=== PATIENT | female | born 1990 ===

== ENCOUNTER 2018-11-05 22:20 | Inpatient (IN) | payer SELFPAY ==
[2018-11-05 22:20] VITALS: BMI 25.4
[2018-11-05] MEDS ORDERED: Sodium Chloride 0.9% 1,000 ML IV ONE (22:49)
--- NOTE | 2018-11-05 22:49 | C.PDOC ---
History Of Present Illness Patient presents with sharp stabbing RUQ/mid epigastric pain radiating to the back with some vomiting. Denies diarrhea. Pain initially started around 2pm, slightly subsided for 2 hours but then ate and it came back. Time Seen by Provider: 11/05/18 22:48 Chief Complaint (Nursing): Abdominal Pain History Per: Patient History/Exam Limitations: no limitations Onset/Duration Of Symptoms: Hrs Current Symptoms Are (Timing): Still Present Severity: Moderate Pain Scale Rating Of: 7 Location Of Pain/Discomfort: RUQ, Epigastric Radiation Of Pain To:: None Quality Of Discomfort: Sharp, Stabbing Associated Symptoms: Vomiting. denies: Diarrhea Exacerbating Factors: None Alleviating Factors: None Last Bowel Movement: Today Recent travel outside of the [place]: No Additional History Per: Family Abnormal Vaginal Bleeding: No Past Medical History Reviewed: Historical Data, Nursing Documentation, Vital Signs Primary Care Provider: Bipin Presley Surg - Medical History PMH: Denies: Depression, Diabetes, HTN - [facility] Procedures EXTRACTION OF POC, LOW CERVICAL, OPEN APPROACH (11/14/17) MONITORING OF POC, CARDIAC RATE, TEACHING ASSISTANT APPROACH (11/14/17) Family History: States: No Known Family Hx - Social History Hx Alcohol Use: No Hx Substance Use: No Review Of Systems Constitutional: Negative for: Fever, Chills Cardiovascular: Negative for: Chest Pain, Palpitations Respiratory: Negative for: Cough, Shortness of Breath Gastrointestinal: Positive for: Vomiting, Abdominal Pain. Negative for: Diarrhea Neurological: Negative for: Weakness, Numbness Physical Exam - Physical Exam Appears: Non-toxic Skin: Warm, Dry Head: Normacephalic Eye(s): bilateral: Normal Inspection Oral Mucosa: Moist Neck: Trachea Midline, Supple Chest: Symmetrical, No Tenderness Cardiovascular: Rhythm Regular Respiratory: No Rales, No Rhonchi, No Wheezing Gastrointestinal/Abdominal: Bowel Sounds (Decreased), Soft, Tenderness (Epigastric/RUQ), Guarding (Voluntary), Rebound (Mild) Back: No CVA Tenderness Extremity: No Tenderness Extremity: Bilateral: Atraumatic Neurological/Psych: Oriented x3 Gait: Steady ED Course And Treatment - Laboratory Results Result Diagrams: 11/05/18 23:11 11/05/18 23:11 Progress Note: Blood work and urinalysis ordered. Morphine, pepcid, reglan, and IV fluids administered. Disposition Discussed With : Thai Hogan Comment: accepted the pt on her service adn took over the care at 1:40 AM Doctor Will See Patient In The: ED Counseled Patient/Family Regarding: Studies Performed, Diagnosis - Disposition Disposition: HOSPITALIZED Disposition Time: 22:49 Condition: FAIR Forms: [facility] (Togolese) - POA Present On Arrival: None - Clinical Impression Clinical Impression: Abdominal pain, Acute cholecystitis - Scribe Statement The provider has reviewed the documentation as recorded by the Scribnora Reynolds All medical record entries made by the Alisaibe were at my direction and personally dictated by me. I have reviewed the chart and agree that the record accurately reflects my personal performance of the history, physical exam, medical decision making, and the department course for this patient. I have also personally directed, reviewed, and agree with the discharge instructions and disposition. Decision To Admit - Pt Status Changed To: Hospital Disposition Of: Inpatient - Admit Certification Admit to Inpatient:: After my assessment, the patient will require hospitalization for at least two midnights. This is because of the severity of symptoms shown, intensity of services needed, and/or the medical risk in this patient being treated as an outpatient. - InPatient: Physician Admission Certification:: After my assessment, the patient will require hospitalization for at least two midnights. This is because of the severity of symptoms shown, intensity of services needed, and/or the medical risk in this patient being treated as an outpatient. - . Bed Request Type: Regular Admitting Physician: Thai Hogan Patient Diagnosis: Abdominal pain, Acute cholecystitis
[2018-11-05 23:16] LABS: BASO % 0.3 % (0.0-2.0); EOS # 0.3 K/uL (0.0-0.7); EOS % 1.8 % (0.0-4.0); HEMOGLOBIN 13.4 g/dL (11.0-16.0); LYMPH # 2.7 K/uL (1.0-4.3); MEAN CELL VOLUME 88.9 fL (81.0-99.0); MEAN CORPUSCULAR HGB CONC 34.9 g/dL (33.0-37.0); MEAN PLATELET VOLUME 10.9 fL (7.2-11.7); MONO # 1.3 K/uL (0.0-0.8); MONO % 8.5 % (0.0-10.0); NEUT # 11.3 K/uL (1.8-7.0); NEUT % 72.4 % (50.0-75.0); NRBC % 0.1 % (0.0-2.0); RBC 4.33 Mil/uL (3.80-5.20); RED CELL DISTRIBUTION WIDTH 12.5 % (11.5-14.5); WHITE BLOOD COUNT 15.6 K/uL (4.8-10.8)
[2018-11-05 23:26] LABS: HCG,QUALITATIVE URINE NEGATIVE (NEGATIVE)
[2018-11-05 23:30] LABS: ALB/GLOB RATIO 1.3 (1.0-2.1); ALBUMIN 4.8 g/dL (3.5-5.0); ALT/SGPT 126 U/L (9-52); AST/SGOT 120 U/L (14-36); BLOOD UREA NITROGEN 13 mg/dL (7-17); CALCIUM 9.4 mg/dl (8.6-10.4); GFR NON-AFRICAN AMERICAN > 60; LIPASE 46 U/L (23-300)
[2018-11-05 23:32] LABS: SQUAMOUS EPITHIAL 4 /hpf (0-5); URINE BACTERIA RARE (<OCC); URINE BILIRUBIN 1+ (NEGATIVE); URINE BLOOD NEGATIVE (NEGATIVE); URINE CLARITY Hazy (Clear); URINE GLUCOSE (UA) NORMAL (Normal); URINE LEUKOCYTE ESTERASE NEG Leu/uL (Negative); URINE PROTEIN 1+ mg/dL (NEGATIVE)
[2018-11-05] MEDS ORDERED: Piperacillin/Tazobact 3.375 gm 100 ML IVPB STA (23:42)
[2018-11-05 23:48] LABS: URINE COLOR YELLOW (YELLOW)
[2018-11-05] MEDS ORDERED: Piperacillin/Tazobact 3.375 gm 100 ML IVPB ONE (23:59)
[2018-11-06] MEDS ORDERED: Iodixanol 320 MG/ML 100 ML BOTTLE IV ONE (00:37)
[2018-11-06] MEDS ORDERED: HYDROmorphone 0.5 mg/0.5 ml ISec IVP PRN (01:53)
[2018-11-06] MEDS: Lactated Ringer's 1,000 ML IV SCH ×2 (02:05→10:01)
[2018-11-06] MEDS: Ciprofloxacin 400mg/200ml D5W 400 MG/200 ML BAG IVPB SCH ×2 (02:25→13:40)
--- NOTE | 2018-11-06 05:51 | CP.PCM.HP ---
History of Present Illness - History of Present Illness History of Present Illness: Surgery: Dr. Herr CC: RUQ abdominal pain HPI: Patient is a 27 y/o female who presented to ER complaining of acute onset, severe epigastric abdominal pain that radiated to the RUQ and R flank. She stated the pain started earlier in the day after lunch, subsided and she attempted eating about 2 hrs later. She states the pain promptly returned and was unrelieved until seen in ER. She reports the pain being associated with nausea and some vomiting. She states she has had multiple similar episodes in the past but the pain would resolve over time. She denies f/c diarrhea or constipation. PMH: PSH: denies Social: denies tobacco, drug or ETOH use Fam: noncontributory Present on Admission - Present on Admission Any Indicators Present on Admission: No Review of Systems - Constitutional Constitutional: absent: Anorexia, Chills, Fever - EENT Eyes: absent: Blind Spots, Blurred Vision Ears: absent: Ear Discharge, Disequilibrium Nose/Mouth/Throat: absent: Nasal Trauma, Nose Pain - Breasts Breasts: absent: Skin Changes, Swelling - Cardiovascular Cardiovascular: absent: Chest Pain, Dyspnea - Respiratory Respiratory: absent: Cough, Dyspnea - Gastrointestinal Gastrointestinal: Abdominal Pain, Nausea, Vomiting. absent: Constipation, Cramping, Diarrhea - Genitourinary Genitourinary: absent: Hematuria, Urinary Hesitance - Musculoskeletal Musculoskeletal: absent: Myalgias, Numbness - Integumentary Integumentary: absent: New Lesions, Rash - Neurological Neurological: absent: Disequilibrium, Dizziness - Psychiatric Psychiatric: absent: Anxiety, Depression - Endocrine Endocrine: absent: Polyphagia, Polyuria - Hematologic/Lymphatic Hematologic: absent: Easy Bleeding, Easy Bruising Past Patient History - Past Medical History & Family History Past Medical History?: No - Past Social History Smoking Status: Never Smoked - CARDIAC Hx Cardiac Disorders: No Hx Angina: No Hx Atrial Fibrillation: No Hx Cardia Arrhythmia: No Hx Circulatory Problems: No Hx Congestive Heart Failure: No Hx Heart Attack: No Hx Heart Murmur: No Hx Heart Transplant: No Hx Hypercholesterolemia: No Hx Hypertension: No Hx Hypotension: No Hx Internal Defibrillator: No Hx Mitral Valve Prolapse: No Hx Pacemaker: No Hx Peripheral Edema: No Hx Peripheral Vascular Disease: No - PULMONARY Hx Respiratory Disorders: No Hx Asthma: No Hx Bronchitis: No Hx Chronic Obstructive Pulmonary Disease (COPD): No Hx Emphysema: No Hx Lung Cancer: No Hx Pneumonia: No Hx Pulmonary Edema: No Hx Pulmonary Embolism: No Hx Respiratory Aspiration: No Hx Respiratory Tract Infection: No Hx Sleep Apnea: No Hx Tuberculosis: No - NEUROLOGICAL Hx Neurological Disorder: No Hx Alzheimer's Disease: No HX Cerebrovascular Accident: No Hx Dementia: No Hx Dizziness: No Hx Meningitis: No Hx Migraine: No Hx Multiple Sclerosis: No Hx Paralysis: No Hx Parkinson's Disease: No Hx Seizures: No Hx Syncope: No Hx Transient Ischemic Attacks (TIA): No Hx Vertigo: No - HEENT Hx HEENT Problems: No Hx Blind: No Hx Cataracts: No Hx Deafness: No Hx Difficulty Chewing: No Hx Epistaxis: No Hx Glaucoma: No Hx Macular Degeneration: No Hx Sinusitis: No - RENAL Hx Chronic Kidney Disease: No Hx Dialysis: No Hx Kidney Stones: No Hx Neurogenic Bladder: No Hx Pyelonephritis: No Hx Renal (Kidney) Cancer: No Hx Renal Failure: No - ENDOCRINE/METABOLIC Hx Endocrine Disorders: No Hx Adrenal Cancer: No Hx Diabetes Insipidus: No Hx Diabetes Mellitus Type 1: No Hx Diabetes Mellitus Type 2: No Hx Hyperthyroidism: No Hx Hypothyroidism: No Hx Systemic Lupus Erythematosus: No - HEMATOLOGICAL/ONCOLOGICAL Hx Blood Disorders: No Hx AIDS: No Hx Anemia: No Hx Blood Transfusions: No Hx Blood Transfusion Reaction: No Hx Bruising: No Hx Cancer: No Hx Chemotherapy: No Hx Cirrhosis: No Hx Gum Bleeding: No Hx Hemophilia: No Hx Hepatitis A: No Hx Hepatitis B: No Hx Hepatitis C: No Hx Human Immunodeficiency Virus (HIV): No Hx Leukemia: No Hx Metastesis: No Hx Shingles: No Hx Sickle Cell Disease: No Hx Unexplained Bleeding: No Hx von Willebrand's Disease: No - INTEGUMENTARY Hx Dermatological Problems: No Hx Basil Cell: No Hx Hoover: No Hx Cellulitis: No Hx Eczema: No Hx Melanoma: No Hx Psoriasis: No Hx Squamous Cell: No - MUSCULOSKELETAL/RHEUMATOLOGICAL Hx Musculoskeletal Disorders: No Hx Arthritis: No Hx Back Pain: No Hx Degenerative Joint Disease: No Hx Falls: No Hx Fractures: No Hx Gout: No Hx Herniated Disk: No Hx Myasthenia Gravis: No Hx Osteoarthritis: No Hx Osteomyelitis: No Hx Osteoporosis: No Hx Rhabdomyolysis: No Hx Rheumatoid Arthritis: No Hx Spinal Stenosis: No Hx Unsteady Gait: No - GASTROINTESTINAL Hx Gastrointestinal Disorders: No Hx Bowel Surgery: No Hx Clostridium Difficile: No Hx Colitis: No Hx Colostomy: No Hx Constipation: No Hx Crohn's Disease: No Hx Diarrhea: No Hx Diverticulitis: No Hx Esophageal Varices: No Hx Fatty Liver Disease: No Hx Gall Bladder Disease: No Hx Gastritis: No Hx Gastroesophageal Reflux: No Hx Hemorrhoids: No Hx Ileostomy: No Hx Irritable Bowel: No Hx Liver Failure: No Hx Nausea: No Hx Pancreatitis: No HX Swallowing Problems: No Hx Ulcer: No Hx Vomiting: No - GENITOURINARY/GYNECOLOGICAL Hx Genitourinary Disorders: No Hx Bladder Cancer: No Hx Bladder Stone: No Hx Cervical Cancer: No Hx Hematuria: No Hx Incontinence: No Hx Ovarian Cancer: No Hx Postmenopausal Bleeding: No Hx Reproductive Disorders: No Hx Sexually Transmitted Disorders: No Hx Uterine Cancer: No Hx Urinary Tract Infection: No - PSYCHIATRIC Hx Psychophysiologic Disorder: No Hx Anxiety: No Hx Bipolar Disorder: No Hx Depression: No Hx Emotional Abuse: No Hx Hallucinations: No Hx Panic Symptoms: No Hx Paranoia: No Hx Post Traumatic Stress Disorder: No Hx Psychosis: No Hx Physical Abuse: No Hx Schizophrenia: No Hx Sexual Abuse: No Hx Substance Use: No - SURGICAL HISTORY Hx Surgeries: Yes Hx Abdominal Aortic Aneurysm Repair: No Hx Amputation: No Hx Angiogram: No Hx Angioplasty: No Hx Appendectomy: No Hx Arteriovenous Shunt: No Hx Arthroscopy: No Hx Bile Duct Stent: No Hx Breast Biopsy: No Hx Cataract Extraction: No Hx Cardiac Catheterization: No Hx Carotid Endarterectomy: No Hx Section: Yes (2x) Hx Cholecystectomy: No Hx Coronary Artery Bypass Graft: No Hx Coronary Stent: No Hx Dilation and Curettage: No Hx Eye Surgery: No Hx Femoral-Popliteal Bypass Graft: No Hx Gastric Bypass Surgery: No Hx Herniorrhaphy: No Hx Hysterectomy: No Hx Joint Replacement: No Hx Kidney Transplant: No Hx Liver Transplant: No Hx Mastectomy: No Hx Musculoskeletal Surgery: No Hx Open Heart Surgery: No Hx Open Reduction Internal Fixation: No Hx Orthopedic Surgery: No Hx Parathyroidectomy: No Hx Penile Implant: No Hx Pulmonary Surgery: No Hx Splenectomy: No Hx Thyroidectomy: No Hx Tonsillectomy: No Hx Tubal Ligation: No Hx Valve Replacement: No Hx Vascular Surgery: No Hx Vascular Access Device: No - ANESTHESIA Hx Anesthesia: Yes Hx Anesthesia Reactions: No Hx Malignant Hyperthermia: No Has any member of the family had a problem w/ anesthesia?: No Meds Allergies/Adverse Reactions: Allergies Allergy/AdvReac Type Severity Reaction Status Date / Time No Known Allergies Allergy Verified 11/06/18 00:09 Physical Exam - Constitutional Appears: Non-toxic, No Acute Distress - Head Exam Head Exam: ATRAUMATIC, NORMAL INSPECTION, NORMOCEPHALIC - Eye Exam Eye Exam: EOMI, Normal appearance - ENT Exam ENT Exam: Mucous Membranes Moist - Respiratory Exam Respiratory Exam: NORMAL BREATHING PATTERN. absent: Respiratory Distress - Cardiovascular Exam Cardiovascular Exam: REGULAR RHYTHM. absent: Tachycardia - GI/Abdominal Exam GI & Abdominal Exam: Soft, Tenderness (+Gómez's sign ). absent: Distended, Guarding, Rebound, Rigid - Extremities Exam Extremities exam: Positive for: normal inspection. Negative for: calf tenderness - Neurological Exam Neurological exam: Alert, Oriented x3 - Psychiatric Exam Psychiatric exam: Normal Affect, Normal Mood - Skin Skin Exam: Normal Color, Warm Results - Vital Signs Recent Vital Signs: Last Vital Signs Temp 97.9 F 11/06/18 03:00 Pulse 90 11/06/18 03:07 Resp 20 11/06/18 03:07 BP 110/68 11/06/18 03:00 Pulse Ox 97 11/06/18 03:00 - Labs Result Diagrams: 11/05/18 23:11 11/05/18 23:11 Labs: Laboratory Results - last 24 hr 11/05/18 11/05/18 11/05/18 23:11 23:11 23:11 WBC 15.6 H RBC 4.33 Hgb 13.4 Hct 38.5 MCV 88.9 MCH 31.0 MCHC 34.9 RDW 12.5 Plt Count 214 MPV 10.9 Neut % (Auto) 72.4 Lymph % (Auto) 17.[address] [place] % (Auto) 8.5 Eos % (Auto) 1.8 Baso % (Auto) 0.3 Neut # (Auto) 11.3 H Lymph # (Auto) 2.7 [place] # (Auto) 1.3 H Eos # (Auto) 0.3 Baso # (Auto) 0.0 Sodium 138 Potassium 3.1 L Chloride 100 Carbon Dioxide 27 Anion Gap 14 BUN 13 Creatinine 0.5 L Est GFR ( Amer) > 60 Est GFR (Non-Af Amer) > 60 Random Glucose 125 H Calcium 9.4 Total Bilirubin 0.9 AST 120 H ALT 126 H Alkaline Phosphatase 102 Total Protein 8.5 H Albumin 4.8 Globulin 3.8 Albumin/Globulin Ratio 1.3 Lipase 46 Urine Color Yellow Urine Clarity Hazy Urine pH 5.0 Ur Specific [place] 1.033 H Urine Protein 1+ H Urine Glucose (UA) Normal Urine Ketones Negative Urine Blood Negative Urine Nitrate Negative Urine Bilirubin 1+ H Urine Urobilinogen 4.0 H Ur Leukocyte Esterase Neg Urine WBC (Auto) 1 Urine RBC (Auto) 2 Ur Squamous Epith Cells 4 Urine Bacteria Rare Urine HCG, Qual Negative Assessment & Plan - Assessment and Plan (Free Text) Assessment: 27 y/o female w/ acute cholecystits Plan: -NPO -IVF -Iv abx -replace elctrolytes and repeat am labs -plan for OR today for lap dann, urine preg neg -am u/s -SCDS and pepcid for ppx -d/w Dr. Herr [facility], [place], operated by [facility] PGY4
--- NOTE | 2018-11-06 07:18 | CT ---
CT abdomen and pelvis HISTORY: Right upper quadrant abdominal pain. COMPARISON: None available. TECHNIQUE: Multiple contiguous axial images were performed through the abdomen and pelvis with the use of intravenous contrast. Subsequently, sagittal and coronal reformatted images were obtained. This CT exam was performed using one or more of the following dose reduction techniques: Automated exposure control, adjustment of the mA and/or kV according to patient size, and/or use of iterative reconstruction technique. Findings: Lung bases are clear. No pleural or pericardial effusion. Mild fatty infiltration of the liver. Distended gallbladder with cholelithiasis. Suggestion of mild gallbladder wall thickening and edema. These findings may represent an early acute and or developing acute cholecystitis. Clinical correlation. Correlation with right upper quadrant abdominal ultrasound may be helpful if clinically indicated. Clinical correlation. Spleen is preserved. Splenule. Adrenal glands are preserved. Pancreas is preserved. Few distended loops of small bowel in the upper mid abdomen. Right kidney: No calculi or hydronephrosis. Left Kidney: No calculi or hydronephrosis. Distended urinary bladder. Suggestion of a prominent nabothian cyst at the level of the cervix. Heterogeneous uterus and bilateral adnexa. Underdistention and or mild thickening of the sigmoid colon and rectum. Clinical correlation. Focal underdistention of the midtransverse colon nonspecific. Fecal retention in the right hemicolon. Appendix is visualized and is within normal limits. No significant abdominal or pelvic lymphadenopathy. Degenerative changes in the visualized osseous structures. Impression: 1. Distended gallbladder with cholelithiasis. Suggestion of mild gallbladder wall thickening and edema. These findings may represent an early acute and or developing acute cholecystitis. Clinical correlation. Correlation with right upper quadrant abdominal ultrasound may be helpful if clinically indicated. Clinical correlation. 2. Mild fatty infiltration of the liver. 3. Underdistention and or mild thickening of the sigmoid colon and rectum. Clinical correlation. Additional findings as above. A preliminary report was generated at 1:29 a.m. on 11/06/[address] Riya Kwon from [employer]
[2018-11-06 07:20] LABS: BASO % 0.4 % (0.0-2.0); EOS # 0.1 K/uL (0.0-0.7); EOS % 0.5 % (0.0-4.0); HEMOGLOBIN 12.8 g/dL (11.0-16.0); LYMPH # 1.5 K/uL (1.0-4.3); MEAN CELL VOLUME 89.5 fL (81.0-99.0); MEAN CORPUSCULAR HEMOGLOBIN 31.2 pg (27.0-31.0); MEAN CORPUSCULAR HGB CONC 34.9 g/dL (33.0-37.0); MEAN PLATELET VOLUME 10.8 fL (7.2-11.7); MONO # 1.1 K/uL (0.0-0.8); MONO % 11.1 % (0.0-10.0); NEUT # 7.1 K/uL (1.8-7.0); RBC 4.09 Mil/uL (3.80-5.20); RED CELL DISTRIBUTION WIDTH 12.6 % (11.5-14.5); WHITE BLOOD COUNT 9.8 K/uL (4.8-10.8)
[2018-11-06 07:32] LABS: INR 1.2; PARTIAL THROMBOPLASTIN TIME 30.8 SECONDS (21-34); PROTHROMBIN TIME 12.7 SECONDS (9.7-12.2)
[2018-11-06 07:53] LABS: ALB/GLOB RATIO 1.3 (1.0-2.1); ALBUMIN 3.9 g/dL (3.5-5.0); ALT/SGPT 285 U/L (9-52); AST/SGOT 309 U/L (14-36); BLOOD UREA NITROGEN 7 mg/dL (7-17); CALCIUM 8.9 mg/dl (8.6-10.4); GFR NON-AFRICAN AMERICAN > 60
[2018-11-06] MEDS ORDERED: Propofol 10 mg/ml Inj (20 ML) ONE (16:03)
[2018-11-06] MEDS ORDERED: Midazolam 2 MG/2 ML VIAL ONE (16:03)
[2018-11-06] MEDS ORDERED: Rocuronium 10 mg/ml (5 ml) ONE (16:05)
[2018-11-06] MEDS ORDERED: oxyCODONE 5 mg Immediate Release Tab PO PRN (17:52)
--- NOTE | 2018-11-06 17:52 | PCM.SURG1 ---
Surgeon's Initial Post Op Note - Surgeon's Notes Surgeon: Jake Hogan MD Sand Mixer: Lucero Jacob, PGY-2; Aidee Rockwell, PGY-2 Type of Anesthesia: General Endo Anesthesia Administered By: Dr Gaviria Pre-Operative Diagnosis: Acute cholecystitis Operative Findings: cholelithiasis, cholecystitis Post-Operative Diagnosis: Acute cholecystitis, cholelithiasis Operation Performed: Laparoscopic cholecystectomy Specimen/Specimens Removed: Gallbladder Estimated Blood Loss: EBL {In ML}: 5 Blood Products Given: N/A Drains Used: No Drains Post-Op Condition: Good Date of Surgery/Procedure: 11/06/18 Time of Surgery/Procedure: 17:51
[2018-11-06] MEDS: HYDROmorphone 0.5 mg/0.5 ml ISec IVP PRN ×3 (18:10→19:20)
[2018-11-06] MEDS ORDERED: Lactated Ringer's 1,000 ML IV SCH (18:15)
[2018-11-06] MEDS ORDERED: Lactated Ringer's 1,000 ML IV ONE (19:30)
[2018-11-07 01:16] VITALS: RESP 20
[2018-11-07] MEDS: Ciprofloxacin 400mg/200ml D5W 400 MG/200 ML BAG IVPB SCH (01:49)
[2018-11-07 08:48] VITALS: BP 99/62; PULSE 73; TEMP 98.5; O2SAT 94
--- NOTE | 2018-11-07 09:37 | OP ---
PROCEDURE DATE: 11/06/2018 SURGEON: Thai Hogan MD FORGING OPERATOR: Lucero Jacob DO, PGY-2 ANESTHESIOLOGIST: Adam Gaviria DO ANESTHESIA: General endotracheal. PREOPERATIVE DIAGNOSIS: Acute cholecystitis. POSTOPERATIVE DIAGNOSES: Acute cholecystitis and cholelithiasis. FINDINGS: Cholelithiasis. SPECIMEN: Gallbladder. ESTIMATED BLOOD LOSS: 5 mL. DRAINS: None. COMPLICATIONS: None. DESCRIPTION OF PROCEDURE: The patient was brought into the operating room and laid supine upon the operating table. General endotracheal anesthesia was induced. The patient was prepped and draped in the usual sterile fashion. A time-out was performed identifying the patient and procedure. An infraumbilical incision was made for a 12-mm trocar. The Veress needle was utilized to induce pneumoperitoneum to 15 mmHg. A bladed 12-mm trocar was then introduced. The laparoscope was introduced into the intra-abdominal cavity and intra-abdominal cavity was evaluated for any abnormalities. No abnormalities or enterotomies were noted. A 11 mm port was then introduced into the epigastrium and subsequently two 5 mm ports over the left lateral abdominal wall. At which point, the power cut off in the operating room table. The laparoscope was withdrawn into the trocar and the tower for the laparoscope was exchanged for a new tower. Power was reestablished. Pneumoperitoneum was reestablished. The abdominal cavity was reinspected for any abnormalities, none were noted. The fundus of the gallbladder was grasped and retracted cephalad over the liver. There were a few filmy adhesions between the mesentery and gallbladder that were taken down. Then the fundus of the gallbladder was grasped and pulled caudad and laterally exposing the presumed cystic triangle. The [place] dissector was utilized to carefully dissect the structures. The first structure was triply clipped and divided. There was an area of posterior to the first structure that was triply clipped and divided. After that the cystic duct was identified and a small stone was felt to be in the cystic duct which was milked up and removed via a small enterotomy in the cystic duct. The cystic duct was then triply clipped and divided completely. The gallbladder was removed from the gallbladder fossa using hook electrocautery. The gallbladder fossa was irrigated and inspected for hemostasis prior to completely removing the gallbladder, hemostasis was achieved using electrocautery. Then the gallbladder was removed from the intraabdominal cavity via Endocatch bag. The irrigation was removed via suction and the intra- abdominal cavity was re-evaluated in all quadrants for any abnormalities, there was a few pelvic adhesions that were non obstructing. The fascia of the 11 and 12 mm trocar insertion sites was closed with 0-Vicryl on a UR -6 needle with good approximation. All skin incisions were closed using 4-0 Monocryl in a subcuticular fashion. Surgical glue was then applied. At the end of the procedure all sutures, sponges and instruments were declared to be correct. The patient was extubated and taken to the post anesthesia care unit in stable condition. Lucero Jacob DO Thai Hogan MD MTDAntonio
[2018-11-07] MEDS ORDERED: Enoxaparin 30 mg Syringe SC SCH (10:00)
[2018-11-07] MEDS: Lactated Ringer's 1,000 ML IV SCH (10:56)
--- NOTE | 2018-11-07 11:02 | CP.PCM.DIS ---
Provider - Provider Date of Admission: 11/06/18 01:39 Attending physician: Thai Hogan MD Time Spent in preparation of Discharge (in minutes): 20 Hospital Course - Lab Results Lab Results: Most Recent Lab Values WBC 9.8 K/uL (4.8-10.8) 11/06/18 07:08 RBC 4.09 Mil/uL (3.80-5.20) 11/06/18 07:08 Hgb 12.8 g/dL (11.0-16.0) 11/06/18 07:08 Hct 36.6 % (34.0-47.0) 11/06/18 07:08 MCV 89.5 fL (81.0-99.0) 11/06/18 07:08 MCH 31.2 pg (27.0-31.0) H 11/06/18 07:08 MCHC 34.9 g/dL (33.0-37.0) 11/06/18 07:08 RDW 12.6 % (11.5-14.5) 11/06/18 07:08 Plt Count 200 K/uL (130-400) 11/06/18 07:08 MPV 10.8 fL (7.2-11.7) 11/06/18 07:08 Neut % (Auto) 73.0 % (50.0-75.0) 11/06/18 07:08 Lymph % (Auto) 15.0 % (20.0-40.0) L 11/06/18 07:08 Roane % (Auto) 11.1 % (0.0-10.0) H 11/06/18 07:08 Eos % (Auto) 0.5 % (0.0-4.0) 11/06/18 07:08 Baso % (Auto) 0.4 % (0.0-2.0) 11/06/18 07:08 Neut # (Auto) 7.1 K/uL (1.8-7.0) H 11/06/18 07:08 Lymph # (Auto) 1.5 K/uL (1.0-4.3) 11/06/18 07:08 Roane # (Auto) 1.1 K/uL (0.0-0.8) H 11/06/18 07:08 Eos # (Auto) 0.1 K/uL (0.0-0.7) 11/06/18 07:08 Baso # (Auto) 0.0 K/uL (0.0-0.2) 11/06/18 07:08 PT 12.7 SECONDS (9.7-12.2) H 11/06/18 07:08 INR 1.2 11/06/18 07:08 APTT 30.8 SECONDS (21-34) 11/06/18 07:08 Sodium 140 mmol/L (132-148) 11/06/18 07:08 Potassium 4.1 mmol/L (3.6-5.2) 11/06/18 07:08 Chloride 106 mmol/L (98-107) 11/06/18 07:08 Carbon Dioxide 27 mmol/L (22-30) 11/06/18 07:08 Anion Gap 11 (10-20) 11/06/18 07:08 BUN 7 mg/dL (7-17) 11/06/18 07:08 Creatinine 0.6 mg/dL (0.7-1.2) L 11/06/18 07:08 Est GFR ( Amer) > 60 11/06/18 07:08 Est GFR (Non-Af Amer) > 60 11/06/18 07:08 Random Glucose 100 mg/dL (65-105) 11/06/18 07:08 Calcium 8.9 mg/dl (8.6-10.4) 11/06/18 07:08 Magnesium 1.8 mg/dL (1.6-2.3) 11/06/18 07:08 Total Bilirubin 1.3 mg/dL (0.2-1.3) 11/06/18 07:08 AST 309 U/L (14-36) H D 11/06/18 07:08 ALT 285 U/L (9-52) H D 11/06/18 07:08 Alkaline Phosphatase 80 U/L (38-126) 11/06/18 07:08 Total Protein 7.0 g/dL (6.3-8.3) 11/06/18 07:08 Albumin 3.9 g/dL (3.5-5.0) 11/06/18 07:08 Globulin 3.1 gm/dL (2.2-3.9) 11/06/18 07:08 Albumin/Globulin Ratio 1.3 (1.0-2.1) 11/06/18 07:08 Lipase 46 U/L (23-300) 11/05/18 23:11 Urine Color Yellow (YELLOW) 11/05/18 23:11 Urine Clarity Hazy (Clear) 11/05/18 23:11 Urine pH 5.0 (5.0-8.0) 11/05/18 23:11 Ur Specific Sumner 1.033 (1.003-1.030) H 11/05/18 23:11 Urine Protein 1+ mg/dL (NEGATIVE) H 11/05/18 23:11 Urine Glucose (UA) Normal mg/dL (Normal) 11/05/18 23:11 Urine Ketones Negative mg/dL (NEGATIVE) 11/05/18 23:11 Urine Blood Negative (NEGATIVE) 11/05/18 23:11 Urine Nitrate Negative (NEGATIVE) 11/05/18 23:11 Urine Bilirubin 1+ (NEGATIVE) H 11/05/18 23:11 Urine Urobilinogen 4.0 mg/dL (0.2-1.0) H 11/05/18 23:11 Ur Leukocyte Esterase Neg Hillary/uL (Negative) 11/05/18 23:11 Urine WBC (Auto) 1 /hpf (0-5) 11/05/18 23:11 Urine RBC (Auto) 2 /hpf (0-3) 11/05/18 23:11 Ur Squamous Epith Cells 4 /hpf (0-5) 11/05/18 23:11 Urine Bacteria Rare (<OCC) 11/05/18 23:11 Urine HCG, Qual Negative (NEGATIVE) 11/05/18 23:11 - Hospital Course Hospital Course: 27 yo F who presented to the hospital on 11/05 with RUQ abdominal pain and found to have acute cholecystitis. She was taken to the operating room the following day for laparoscopic cholecystectomy. On Post op day #1 patient was tolerating regular diet and pain was wall controlled. She was ambulatory in the hallways. Patient was discharged home in stable condition with instructions for post-op followup appointment. Discharge Exam - Head Exam Head Exam: ATRAUMATIC, NORMAL INSPECTION, NORMOCEPHALIC - Respiratory Exam Respiratory Exam: NORMAL BREATHING PATTERN. absent: Respiratory Distress - Cardiovascular Exam Cardiovascular Exam: REGULAR RHYTHM - GI/Abdominal Exam GI & Abdominal Exam: Soft. absent: Distended, Firm, Guarding, Rebound, Rigid, Tenderness - Neurological Exam Neurological exam: Alert, Oriented x3 - Psychiatric Exam Psychiatric exam: Normal Affect, Normal Mood - Skin Skin Exam: Dry, Intact Discharge Plan - Follow Up Plan Condition: FAIR Disposition: HOME/ ROUTINE Additional Instructions: Make an appointment to see Dr. Hogan in office in 1-2 weeks. Call for appointment. Resume regular diet and light activities such as walking. No heavy lifting >10lbs for 4 weeks. Take Tylenol or Motrin as needed for pain. Referrals: Thai Hogan MD [Staff Provider] -
== END 2018-11-07 14:01 | disposition home or self-care (01) | DRG 419 ==
LOC: C.ER 22:20 → C.6T 11-06 01:39
PROVIDERS: ADMIT Specialist; ATTEND Specialist
PROC: 0FT44ZZ Resection of Gallbladder, Percutaneous Endoscopic Approach (ICD-10-PCS; principal; 2018-11-06 12:00)
DX: K80.00 Calculus of gallbladder with acute cholecystitis without obstruction (principal)